=== PATIENT | female | born 1960 | race American Indian/Alaskan Native ===

== ENCOUNTER 2017-10-01 05:22 | Emergency (ER) | payer OTHER ==
[2017-10-01] MEDS ORDERED: MOTRIN PO ONE (05:40)
--- NOTE | 2017-10-01 06:08 | XRay Report ---
FINAL REPORT EXAM: XR CHEST ROUTINE 2V HISTORY: cough and fever TECHNIQUE: PA and lateral views of the chest were submitted. FINDINGS: The heart size and mediastinum appear normal. The lungs are clear. Pleural fluid is not seen. The bones soft tissues do not show any acute changes. IMPRESSION: No active chest disease.
[2017-10-01] MEDS ORDERED: TYLENOL/CODEINE PO ONE (10:21)
--- NOTE | 2017-10-01 10:21 | Emergency Department Report ---
HPI - General Chief Complaint: Upper Respiratory Infection Time Seen by Provider: 10/01/17 09:03 - HPI HPI: Patient reports cough, congestion sore throat and headache over the last 2 weeks but reports that she's been having fever over the last 2 days. Denies any chest pain or shortness of breath. Denies any neck pain. Denies any abdominal or back pain. She that she's been taking [id number] cough and cold without any relief. Patient has been around individuals that has been sick. She is having aching pain 10 out of 10 generalized left arm and upper back with coughing. ED Past Medical Hx - Past Medical History Previous Medical History?: Yes Hx Hypertension: Yes Hx Congestive Heart Failure: No Hx Diabetes: No Hx Arthritis: Yes Hx Kidney Stones: Yes Hx Asthma: No Hx COPD: No Additional medical history: Sleep Apnea, Obesity - Surgical History Past Surgical History?: Yes Additional Surgical History: Tubal Ligation, Fibroidectomy - Family History Family history: hypertension - Social History Smoking Status: Never Smoker Substance Use Type: None - Medications Home Medications: Home Medications Medication Instructions Recorded Confirmed Last Taken Type Aspirin [Aspirin BABY CHEW TAB] 81 mg PO QDAY #30 tab.chew 07/05/16 Unknown Rx AtorvaSTATin [Lipitor] 40 mg PO QHS #30 tablet 07/05/16 Unknown Rx Famotidine [Pepcid] 20 mg PO BID tablet 07/05/16 Unknown Rx HYDROcodone/APAP 5-325 [Lucas 1 each PO Q6H PRN #20 tablet 07/05/16 Unknown Rx 5-325 mg TAB] Naproxen [Naprosyn TAB] 375 mg PO Q12H PRN #1 tablet 07/05/16 Unknown Rx Sennosides Tab [Senokot] 8.6 mg PO QHS tablet 07/05/16 Unknown Rx ALBUTEROL Inhaler [ProAir HFA 2 puff IH QID PRN 30 Days #1 10/01/17 Unknown Rx Inhaler] inhalation Acetaminophen [Acetaminophen TAB] 650 mg PO Q8H PRN 5 Days #15 tablet 10/01/17 Unknown Rx Amoxicillin/K Clav Tab [Augmentin 1 tab PO Q12HR 10 Days #20 tab 10/01/17 Unknown Rx 875 mg] Cetirizine HCl [ZyrTEC] 10 mg PO QAM 14 Days #14 capsule 10/01/17 Unknown Rx Fluticasone [Flonase] 1 spray NS QDAY 14 Days #1 bottle 10/01/17 Unknown Rx guaiFENesin/CODEINE [Robitussin AC] 10 ml PO QHS PRN 7 Days #70 udc 10/01/17 Unknown Rx predniSONE [Deltasone] 50 mg PO QAM 5 Days #5 tablet 10/01/17 Unknown Rx ED Review of Systems ROS: Stated complaint: COUGH; CONGESTION Other details as noted in HPI Comment: All other systems reviewed and negative Constitutional: fever Eyes: denies: eye pain, eye discharge, other ENT: throat pain, congestion. denies: ear pain, dental pain Respiratory: cough. denies: orthopnea, shortness of breath, SOB with exertion, SOB at rest, stridor, wheezing Cardiovascular: denies: chest pain, palpitations, dyspnea on exertion, orthopnea , edema, syncope, paroxysmal nocturnal dyspnea Gastrointestinal: denies: abdominal pain, nausea, vomiting, diarrhea, constipation, hematemesis, melena, hematochezia Genitourinary: denies: urgency, dysuria, frequency, hematuria, discharge, abnormal menses, dyspareunia Musculoskeletal: back pain, myalgia. denies: arthralgia Skin: denies: rash Neurological: denies: headache, weakness, numbness, paresthesias, confusion, abnormal gait, vertigo Physical Exam - Physical Exam Vital Signs: Vital Signs 10/01/17 05:30 Temperature 100.4 F H Pulse Rate 110 H Respiratory 16 Rate Blood Pressure 150/77 O2 Sat by Pulse 100 Oximetry Vital Signs 10/01/17 10/01/17 05:30 11:30 Temperature 100.4 F H 98.9 F Pulse Rate 110 H 89 Respiratory 16 22 Rate Blood Pressure 150/77 Blood Pressure 111/73 [Right] O2 Sat by Pulse 100 98 Oximetry General: This is a 57-year-old female well-nourished well-developed in no acute distress. Physical Exam: Head: Normocephalic, atraumatic, no abrasion, no bruising and no contusion. Eyes: Biateral pupils equal and reactive to light, bilateral EOM intact.. Bilateral conjunctival and sclera without injection, normal accommodation. No nystagmus Mouth: Moist, no pharyngeal exudate or erythema. No peritonsillar abscesses. Uvula is midline and oral airways patent. Ears: TM congested without erythema. Bilateral EAC without any redness swelling or drainage. No mastoid bone tenderness Nose: Jose nasal turbinates congested with erythema and clear drainage. Maxillary and frontal sinuses non-tender to palpate. Neck: Supple, No Cervical adenopathy, full range of motion and no C-spine tenderness. No swelling or tracheal deviation normal reflexes Cardiovascular: S1, S2. Tachycardic at 110 ,Regular rhythm. No murmur. Capillary refill is less then 3 seconds. Lungs: Scattered wheezing throughout lung emanuel. No rhonchi or rales. Dry cough. No chest wall tenderness. No chest contusion. No bruising to chest. MSK: Strength 5/5 in all extremities. No joint deformity or crepitus. Normal inspection. Full range of motion to all extremities. No laceration, abrasion or ecchymotic area noted. Patient able to fully flex and extend bilateral knees without any difficulties. Bilateral knees nontender to palpate. Abdomen: Non-tender to palpate in all quadrants, no guarding or rebound tenderness, positive bowel sounds in all quadrants. No CVA tenderness. No hernia, bruit or mass. No rigidity or distention. Extremities: No clubbing, cyanosis or edema. +2 pulses. No neurovascular compromise Skin: Clean, dry and intact. No rash or lesions. Neurological: GCS at 15, Pt is alert and oriented 3 speech is clear . Bilateral hand animal groomer strong and equal. Normal gait. Negative Romberg and no pronator drift. Normal Reflexes. No motor or sensory deficit Back: No vertebral tenderness, no paraspinal tenderness. The bend over and touch his toes without any difficulties. Ambulates without any difficulties. Psych: Normal mood and behavior ED Course Vital Signs 10/01/17 05:30 Temperature 100.4 F H Pulse Rate 110 H Respiratory 16 Rate Blood Pressure 150/77 O2 Sat by Pulse 100 Oximetry - Reevaluation(s) Reevaluation #1: 10/01/17 11:18 Patient received Motrin 800 mg initially and emergency room. She received Tylenol codeine elixir 10 male by mouth, prednisone 60 mg by mouth, Xopenex 1.25 mg and Atrovent 0.5 mg nebulizer treatment. He isn't able to tolerate oral liquids in the emergency room without any vomiting. ED Medical Decision Making - Lab Data Strep test is negative and culture pending Chest x-ray negative - Radiology Data Radiology results: report reviewed Chest x-ray negative for any cardiopulmonary findings. - Medical Decision Making ED course: Patient here complaining of respiratory symptoms of cough, fever and congestion. Chest x-ray revealed no acute cardiopulmonary findings. Strep test is negative. Cultures are still pending. Patient found to have cough and congestion, acute bronchitis. Patient received Motrin and her milligrams in the emergency room this morning and at 5:40 AM. She received Tylenol with codeine petit mls, Xopenex 1.25 mg and Atrovent 0.5 mg nebulizer treatment, Deltasone 60 mg. Patient lung sounds are clear to discussion feels better. I discussed diagnosis and treatment plan along with follow-up with patient and she voiced understanding. Patient discharged home with prescription for albuterol HFA, Deltasone, Augmentin, Zyrtec, Flonase, Tylenol for fever and guaifenesin with codeine when necessary at nighttime. Discharge home with her family in stable condition. Critical care attestation.: If time is entered above; I have spent that time in minutes in the direct care of this critically ill patient, excluding procedure time. ED Disposition Clinical Impression: Fever in adult, Bronchitis, Cough with congestion of paranasal sinus Disposition: DC-01 TO HOME OR SELFCARE Is pt being admited?: No Does the pt Need Aspirin: No Condition: Stable Instructions: Fever in Children (ED), Acute Bronchitis (ED), Acute Cough (ED) Additional Instructions: increase her fluid intake Take medication as prescribed Follow-up with a primary care physician in 2 days Diffuse symptoms worsen return to the emergency room otherwise follow-up with primary care physician Prescriptions: guaiFENesin/CODEINE [Robitussin AC] 10 ml PO QHS PRN 7 Days #70 udc PRN Reason: Cough Acetaminophen [Acetaminophen TAB] 650 mg PO Q8H PRN 5 Days #15 tablet PRN Reason: Fever ALBUTEROL Inhaler [ProAir HFA Inhaler] 2 puff IH QID PRN 30 Days #1 inhalation PRN Reason: WHEEZING AND COUGH Amoxicillin/K Clav Tab [Augmentin 875 mg] 1 tab PO Q12HR 10 Days #20 tab Cetirizine HCl [ZyrTEC] 10 mg PO QAM 14 Days #14 capsule Fluticasone [Flonase] 1 spray NS QDAY 14 Days #1 bottle predniSONE [Deltasone] 50 mg PO QAM 5 Days #5 tablet Referrals: PRIMARY CARE, [Primary Care Provider] - 10/03/17 [facility] [Outside] - 10/03/17 Forms: Work/School Release Form(ED)
[2017-10-01] MEDS ORDERED: DELTASONE PO ONE (10:23)
[2017-10-01] MEDS ORDERED: XOPENEX IH ONE ×2 (10:23)
[2017-10-01 11:31] VITALS: BP 111/73
== END 2017-10-01 11:58 | disposition home or self-care (01) ==
LOC: ED 05:22
DX: J40 Bronchitis, not specified as acute or chronic (principal); R50.9 Fever, unspecified; R05 Cough; I10 Essential (primary) hypertension
CPT/HCPCS: 71046; 87116; 87430; 94640; 99283; J7512